=== PATIENT | male | born 1995 | race Caucasian/White ===

== ENCOUNTER 2016-12-30 12:03 | Emergency (ER) | payer BC ==
[~2016-12-30] VITALS: Ht 172.7 cm; Wt 88.6 kg
[2016-12-30 12:06] VITALS: TEMP 36.9; Ht 172.7 cm; Wt 88.6 kg
[2016-12-30] MEDS ORDERED: SODIUM CHLORIDE 0.9% 1000ML 1,000 ML IV STA ×2 (12:18→13:32)
[2016-12-30] MEDS ORDERED: AMPH30TA2 PO (12:23)
[2016-12-30] MEDS ORDERED: MONT1CHW6 PO (12:23)
[2016-12-30] MEDS ORDERED: LEVO5TAB2 PO (12:23)
--- NOTE | 2016-12-30 12:23 | EMERGENCY ROOM VISIT NOTE ---
History First contact with patient: 12:10 Chief Complaint: DEHYDRATION Stated Complaint: EXHAUSTION, DEHYDRATED, LIGHTHEADED, SOB History of Present Illness The patient is a 21 year old male who presents to the Emergency Room with complaints of dehydration. The patient states that over the last several days he has felt very fatigued and lightheaded. The patient states that he has been up studying for finals and has not slept much. He states he drank alcohol 2 days ago but has still felt rundown and tired. He states that he feels lightheaded. He has generalized discomfort which he rates a 5/10. He denies any fevers or chills. He denies any earache, sore throat, cough. He denies any pain in his chest or trouble breathing. He denies any nausea or vomiting. He denies any urinary symptoms. He denies any diarrhea. Review of Systems A 10 system review of systems was completed with positives and pertinent negatives listed in the HPI. Past Medical/Surgical History Patient denies Social History Smoking Status: Never Smoker Marital Status: single Occupation Status: [employer] student Current/Historical Medications Scheduled Amphetamine-Dextroamphetamine 30MG (Adderall 30MG), 15 MG PO DAILY Levocetirizine Dihydrochloride (Xyzal), 5 MG PO DAILY Montelukast Sodium (Singulair Chewable), 5 MG PO DAILY Allergies Coded Allergies: Peanut (Unverified Allergy, Unknown, ANAPHYLAXIS, 12/30/16) Physical Exam Vital Signs Date Time Temp Pulse Resp B/P Pulse Ox O2 Delivery O2 Flow Rate FiO2 12/30/16 15:03 119 18 131/71 99 Room Air 12/30/16 13:38 90 16 117/52 99 Room Air 12/30/16 13:31 103 20 152/80 97 12/30/16 12:06 36.9 110 20 147/91 99 Room Air Physical Exam VITALS: Vitals are noted on the nurse's note and reviewed by myself. Vital signs stable. The patient is afebrile. His heart rate was 110 bpm. GENERAL: This is a 21-year-old male, in no acute distress, nondiaphoretic, well- developed well-nourished. SKIN: The skin was without rashes, erythema, edema, or bruising. There is no tenting of the skin. Capillary reflex less than 2 seconds. HEAD: Normocephalic atraumatic. EARS: External auditory canals clear, tympanic membranes pearly hearn without erythema or effusion bilaterally. EYES: Pupils equal round and reactive to light and accommodation. Conjunctivae without injection, sclerae without icterus. Extraocular movements intact. NOSE: Patent, turbinates without inflammation or discharge. MOUTH: Mucous membranes moist. Tonsils are bilaterally enlarged. There is mild posterior pharyngeal erythema. Uvula midline. Airway patent. Tongue does not deviate. NECK: Supple without nuchal rigidity. No lymphadenopathy. No thyromegaly. Cervical spine is nontender. No JVD. HEART: Regular rate and rhythm without murmurs gallops or rubs. LUNGS: Clear to auscultation bilaterally without wheezes, rales or rhonchi. No retractions or accessory muscle use. ABDOMEN: Positive bowel sounds x 4. Soft, nontender, without masses or organomegaly. MUSCULOSKELETAL: No muscle atrophy, erythema, or edema noted. Full range of motion in all extremities. No tenderness to palpation. Normal gait. Strength 5/5 throughout. NEURO: Patient was alert and oriented to person place and time. No focal neurological deficits. Medical Decision & Procedures Laboratory Results 12/30/16 12:25 Red Blood Count 4.98, Mean Corpuscular Volume 88.6, Mean Corpuscular Hemoglobin 30.5, Mean Corpuscular Hemoglobin Concent 34.5, Mean Platelet Volume 8.4, Neutrophils (%) (Auto) 79.8, Lymphocytes (%) (Auto) 10.2, Monocytes (%) (Auto) 9.0, Eosinophils (%) (Auto) 0.0, Basophils (%) (Auto) 0.7, Neutrophils # (Auto) 5.32, Lymphocytes # (Auto) 0.68, Monocytes # (Auto) 0.60, Eosinophils # (Auto) 0.00, Basophils # (Auto) 0.05 12/30/16 12:25 Test 12/30/16 12:25 12/30/16 13:25 White Blood Count 6.67 K/uL (4.8-10.8) Red Blood Count 4.98 M/uL (4.7-6.1) Hemoglobin 15.2 g/dL (14.0-18.0) Hematocrit 44.1 % (42-52) Mean Corpuscular Volume 88.6 fL (80-100) Mean Corpuscular Hemoglobin 30.5 pg (25-34) Mean Corpuscular Hemoglobin Concent 34.5 g/dl (32-36) Platelet Count 179 K/uL (130-400) Mean Platelet Volume 8.4 fL (7.4-10.4) Neutrophils (%) (Auto) 79.8 % Lymphocytes (%) (Auto) 10.2 % Monocytes (%) (Auto) 9.0 % Eosinophils (%) (Auto) 0.0 % Basophils (%) (Auto) 0.7 % Neutrophils # (Auto) 5.32 K/uL (1.4-6.5) Lymphocytes # (Auto) 0.68 K/uL (1.2-3.4) Monocytes # (Auto) 0.60 K/uL (0.11-0.59) Eosinophils # (Auto) 0.00 K/uL (0-0.5) Basophils # (Auto) 0.05 K/uL (0-0.2) RDW Standard Deviation 39.6 fL (36.4-46.3) RDW Coefficient of Variation 12.4 % (11.5-14.5) Immature Granulocyte % (Auto) 0.3 % Immature Granulocyte # (Auto) 0.02 K/uL (0.00-0.02) Anion Gap 9.0 mmol/L (3-11) Est Creatinine Clear Calc Drug Dose 113.9 ml/min Estimated GFR () 109.9 Estimated GFR (Non- 94.8 BUN/Creatinine Ratio 10.4 (10-20) Calcium Level 9.5 mg/dl (8.5-10.1) Total Bilirubin 0.7 mg/dl (0.2-1) Aspartate Amino Transf (AST/SGOT) 41 U/L (15-37) Alanine Aminotransferase (ALT/SGPT) 72 U/L (12-78) Alkaline Phosphatase 59 U/L (45-117) Total Creatine Kinase 366 U/L (39-308) Total Protein 8.0 gm/dl (6.4-8.2) Albumin 4.4 gm/dl (3.4-5.0) Globulin 3.6 gm/dl (2.5-4.0) Albumin/Globulin Ratio 1.2 (0.9-2) Lipase 115 U/L (73-393) Monoscreen NEG (NEG) Urine Color YELLOW Urine Appearance CLEAR (CLEAR) Urine pH 7.0 (4.5-7.5) Urine Specific [place]ill 1.006 (1.000-1.030) Urine Protein NEG (NEG) Urine Glucose (UA) NEG (NEG) Urine Ketones NEG (NEG) Urine Occult Blood TRACE (NEG) Urine Nitrite NEG (NEG) Urine Bilirubin NEG (NEG) Urine Urobilinogen NEG (NEG) Urine Leukocyte Esterase NEG (NEG) Urine WBC (Auto) 0 /hpf (0-5) Urine RBC (Auto) 0-4 /hpf (0-4) Urine Hyaline Casts (Auto) 0 /lpf (0-5) Urine Epithelial Cells (Auto) 0-5 /lpf (0-5) Urine Bacteria (Auto) NEG (NEG) Medications Administered Medications (Trade) Dose Ordered Sig/Zheng Route Start Time Stop Time Status Last Admin Dose Admin Sodium Chloride 1,000 ml @ 999 mls/hr Q1H1M STAT IV 12/30/16 12:18 12/30/16 13:18 DC 12/30/16 12:18 999 MLS/HR Sodium Chloride (Nss 1000ml) 1,000 ml @ 999 mls/hr Q1H1M STAT IV 12/30/16 13:32 12/30/16 14:32 DC 12/30/16 13:32 999 MLS/HR ED Course The patient was seen and examined. Previous visits were reviewed. The patient does not have a fever or leukocytosis. He does not have any significant electrolyte abnormalities. AST was minimally elevated at 41 and ALT was normal. This is likely related to his recent alcohol intake over the weekend. His CPK was slightly elevated at 366. Lipase was not elevated. Urinalysis was negative. Moca and strep screens were negative The patient was hydrated with normal saline 2 L and stated he was feeling markedly improved The patient presented to the emergency department with dizziness, lightheadedness, dehydration. The patient history alcoholism the weekend. He was hydrated as above and felt significantly better. He did not have any significant abdominal tenderness on examination. I do not suspect acute abdomen. He should follow[facility] with [facility] later this week for a recheck. He should return to the ER sooner with worsening symptoms. The case was discussed with Dr. Gann who agrees with the assessment and treatment plan Medical Decision DIFFERENTIAL DIAGNOSIS: Hepatitis, cholecystitis, cholangitis, biliary colic, pancreatitis, pneumonia, subdiaphragmatic abscess, appendicitis, inguinal hernia , nephrolithiasis, inflammatory bowel disease, mesenteric adenitis, peptic ulcer disease, GERD, gastritis, pancreatitis, myocardial infarction, pericarditis, ruptured aortic aneurysm, appendicitis, gastroenteritis, bowel obstruction, splenic infarct, diverticulitis, mesenteric ischemia, metabolic, peritonitis, among others. Impression Primary Impression: Dehydration Departure Information Dispostion Home / Self-Care Condition GOOD Referrals No Doctor, Assigned (PCP) Patient Instructions Dehydration, [facility] Additional Instructions Rest Increase fluids REturn with worsening symptoms
[2016-12-30 12:39] LABS: BASO % 0.7 %; BASO ABS # 0.05 K/uL (0-0.2); COMPLETE YES; HEMATOCRIT 44.1 % (42-52); IG% 0.3 %; LYMPH % 10.2 %; LYMPH ABS # 0.68 K/uL (1.2-3.4); MEAN CELL VOLUME 88.6 fL (80-100); MEAN CORPUSCULAR HEMOGLOBIN 30.5 pg (25-34); MEAN CORPUSCULAR HGB CONC 34.5 g/dl (32-36); MEAN PLATELET VOLUME 8.4 fL (7.4-10.4); NEUT % 79.8 %; PLATELET COUNT 179 K/uL (130-400); RED BLOOD COUNT 4.98 M/uL (4.7-6.1); WHITE BLOOD COUNT 6.67 K/uL (4.8-10.8)
[2016-12-30 13:04] LABS: BUN/CREATININE RATIO 10.4 (10-20); CALCIUM 9.5 mg/dl (8.5-10.1); CREATININE 1.1 mg/dl (0.60-1.40); POTASSIUM 4.2 mmol/L (3.5-5.1)
[2016-12-30 13:06] LABS: ALB/GLOB RATIO 1.2 (0.9-2)
[2016-12-30 14:01] LABS: URINE APPEARANCE CLEAR (CLEAR); URINE BILIRUBIN NEG (NEG); URINE COLOR YELLOW; URINE EPITHELIAL CELL AUTO 0-5 /lpf (0-5); URINE NITRITE NEG (NEG); URINE SPECIFIC GRAVITY 1.006 (1.000-1.030); UROBILINOGEN NEG (NEG); ZZUR CULT IF INDIC CLEAN CATCH NO
[2016-12-30 14:03] LABS: MANUAL MICROSCOPIC REQUIRED? NO; REVIEW REQ? NO
[2016-12-30 15:03] VITALS: BP 131/71; PULSE 119; O2SAT 99
== END 2016-12-30 15:40 | disposition home or self-care (01) ==
LOC: C.EDB 12:05 → C.EDC 15:40
DX: E86.0 Dehydration (principal); Z79.899 Other long term (current) drug therapy; Z91.010 Allergy to peanuts

== ENCOUNTER 2017-09-26 17:51 | Emergency (ER) | payer BC ==
[~2017-09-26] VITALS: Ht 172.7 cm; Wt 83.6 kg
[~2017-09-26 17:51] MED LIST: AMPH30TA2 PO; LEVO5TAB2 PO; MONT1CHW6 PO
[2017-09-26 18:19] VITALS: TEMP 37.4; Ht 172.7 cm; Wt 83.6 kg
[2017-09-26] MEDS ORDERED: DEXAMETHASONE SOD INJ 4 MG/ML 5 ML VIAL IM STA (18:42)
[2017-09-26] MEDS ORDERED: DEXAMETHASONE **PF** INJ 10 MG/ML VIAL IM SCH (18:42)
[2017-09-26] MEDS ORDERED: AMOX875T PO (19:15)
--- NOTE | 2017-09-26 19:18 | EMERGENCY ROOM VISIT NOTE ---
History First contact with patient: 18:31 Chief Complaint: ILLNESS Stated Complaint: FATIGUE, CHILLS, SORE THROAT, APPETITE LOSS, DRISCOLL History of Present Illness The patient is a 21 year old male who presents to the Emergency Room with complaints of sore throat. The patient reports that for the past 3 days, he has had cough, fever and sore throat. He reports that his cough has improved but his throat has become more painful. He rates his discomfort an 8/10. He states that it is painful for him to talk and swallow. He is able to eat and swallow. He has not been taking any medication at home for symptoms. He was seen at [facility] and told that he most likely had the flu. He denies any neck pain/stiffness, chest pain or shortness of breath. Review of Systems A complete 10 point review of systems was reviewed with the patient with pertinent positives and negatives as per history of present illness. All else were negative. Past Medical/Surgical History Medical Problems: (1) No significant past medical history Surgical Problems: (1) No significant past surgical history Social History Smoking Status: Never Smoker Marital Status: single Occupation Status: [employer] student Current/Historical Medications Scheduled Amoxicillin & Pot Clavulanate (Augmentin 875-125 mg), 1 TAB PO BID Amphetamine-Dextroamphetamine 30MG (Adderall 30MG), 15 MG PO DAILY Levocetirizine Dihydrochloride (Xyzal), 5 MG PO DAILY Physical Exam Vital Signs Date Time Temp Pulse Resp B/P (MAP) Pulse Ox O2 Delivery O2 Flow Rate FiO2 09/26/17 19:29 74 18 131/69 99 09/26/17 18:19 37.4 100 20 132/86 98 Room Air Physical Exam VITALS: Vitals are noted on the nurse's note and reviewed by myself. Vital signs stable. GENERAL: This is a 21-year-old male, in no acute distress, nondiaphoretic, well- developed well-nourished. SKIN: The skin was without rashes. EARS: External auditory canals clear, tympanic membranes pearly hearn without erythema or effusion bilaterally. EYES: Pupils equal round and reactive to light and accommodation. MOUTH: Mucous membranes moist. Tonsils are moderately enlarged bilaterally with exudate present. No evidence of peritonsillar abscess. Uvula midline. Airway patent. NECK: Supple without nuchal rigidity. Left anterior cervical lymphadenopathy. HEART: Regular rate and rhythm without murmurs gallops or rubs. LUNGS: Clear to auscultation bilaterally without wheezes, rales or rhonchi. NEURO: Patient was alert and oriented to person place and time. Medical Decision & Procedures Medications Administered Medications (Trade) Dose Ordered Sig/Zheng Route Start Time Stop Time Status Last Admin Dose Admin Dexamethasone Sodium Phosphate (Dexamethasone Inj Pf) 10 mg TODAY@1842 IM 09/26/17 18:42 09/26/17 19:15 DC 09/26/17 19:10 10 MG Medical Decision Differential diagnosis includes strep pharyngitis, mononucleosis, peritonsillar abscess, retropharyngeal abscess, among others. The patient was evaluated as above. Presentation is consistent with strep pharyngitis. Patient was given IM Decadron. He will be placed on Augmentin. He was instructed to follow-up with [facility] for recheck. He verbalized understanding of my assessment and treatment plan and was discharged home in good condition. Medication Reconcilliation Current Medication List: was personally reviewed by me Blood Pressure Screening Patient's blood pressure: Normal blood pressure Impression Primary Impression: Pharyngitis Departure Information Dispostion Home / Self-Care Condition GOOD Prescriptions Amoxicillin & Pot Clavulanate (Augmentin 875-125 mg) 1 Tab Tab 1 TAB PO BID for 10 Days, #20 TAB Prov: Lolly Hernandez ., MATA 09/26/17 Referrals No Doctor, Assigned (PCP) Patient Instructions [facility] Additional Instructions You were seen in the emergency department for your sore throat. You were prescribed Augmentin to be taken twice daily as prescribed. This is an antibiotic. All antibiotics have the potential to cause diarrhea. Stop this medication and contact a medical provider if you were to develop any significant adverse side effects including: wheezing, shortness of breath, passing out, vomiting, or a diffuse rash. Always take antibiotics as directed and COMPLETE the ENTIRE course regardless of the improvement of your symptoms. For pain and fever control, you can use the following [id number] medicines (if >12 yo): - Regular strength (325mg/tab) Tylenol (acetaminophen) 2 tabs every 4-6 hours as needed. Do not exceed 12 tablets in a 24 hour period. Avoid taking more than 4 grams (4000 mg) of Tylenol per day. This includes any other sources of acetaminophen you may take on a regular basis. - Regular strength (200 mg/tab) Advil (ibuprofen) 1-2 tabs every 4-6 hours as needed. Do not exceed a dose of 3200 mg per day. - For best results, alternate dosing of Tylenol and Advil. In addition to your prescribed medications, you can also use the following home remedies: - Warm salt-water gargles 3 times per day can soothe your throat and help to fight infection. - Warm tea with honey can soothe your throat. Return to the emergency department if your symptoms persist or worsen over the next 2-3 days despite treatment course outlined above. Return to the emergency department if you develop the following symptoms of: inability to swallow solids , liquids, or drool; excessive wheezing or inability to catch your breath; or intractable fever or pain. Follow up with your primary care provider in 2-3 days from today's emergency department visit. Problem Qualifiers Primary Impression: Pharyngitis Pharyngitis/tonsillitis etiology: unspecified etiology Qualified Codes: J02.9 - Acute pharyngitis, unspecified
[2017-09-26 19:29] VITALS: BP 131/69; PULSE 74; O2SAT 99
--- NOTE | 2017-09-27 18:26 | Pharmacy Progress Note ---
ED Pharmacist Culture FollowUp Date of Service: Sep 27, 2017. Patient was instructed to continue prescription for augmentin 1 tab BID X 10 days, which should cover the group A strep growing from the patient's throat culture.
== END 2017-09-26 19:30 | disposition home or self-care (01) ==
LOC: C.EDB 17:54 → C.EDD 19:30
DX: J02.9 Acute pharyngitis, unspecified (principal)